=== PATIENT | female | born 1950 | race Two or more races ===

== ENCOUNTER → 2020-03-02 | Outpatient (CLI) | payer MEDICARE ==
[~2020-03-02] MED LIST: CALC1CAP8 PO; CYAN1TAB29 PO; DIPH50CA26 PO; LISI-170 PO; MULT-658 PO; Tylenol arthritis PO; [UNRECOGNIZED DRUG - OTHER] PO; hydrochlorothiazide PO; magnesium PO
[2020-03-02 10:38] LABS: BASOPHILS % (AUTO) 1 % (0-1); EOSINOPHILS % (AUTO) 2 % (1-7); LYMPHOCYTES % (AUTO) 33 % (22-44); MEAN PLATELET VOLUME 8.2 fL (7.4-10.4); MONOCYTES % (AUTO) 11 % (2-9); NEUTROPHILS % (AUTO) 54 % (42-75); PLATELET COUNT 230 x10^3/uL (130-400); RED BLOOD COUNT 3.75 x10^6/uL (3.82-5.3); RED CELL DISTRIBUTION WIDTH 13.4 % (9.6-15.2)
[2020-03-02 10:39] LABS: MICROSCOPIC AUTO
[2020-03-02 10:43] LABS: MD NO
[2020-03-02 10:45] LABS: ALBUMIN 4.1 g/dL (3.4-5.0); ANION GAP 4 mmol/L (5-15); CALCIUM 9.3 mg/dL (8.5-10.1); CHLORIDE 105 mmol/L (98-107)
[2020-03-02 10:49] LABS: ALANINE AMINOTRANSFERASE 29 U/L (12-78); ALKALINE PHOSPHATASE 67 U/L (45-117); BILIRUBIN,TOTAL 0.8 mg/dL (0.2-1.0); CREATININE 0.84 mg/dL (0.55-1.02); TOTAL PROTEIN 7.4 g/dL (6.4-8.2)
== END | disposition home or self-care (01) ==
LOC: STAR 08:43
PROVIDERS: ATTEND Obstetrics & Gynecology Gynecology
DX: Z01.812 Encounter for preprocedural laboratory examination (principal); Z20.828 Contact with and (suspected) exposure to other viral communicable diseases
CPT/HCPCS: 71046; 80053; 81001; 85025; 87077; 87086; 87635; 93005

== ENCOUNTER 2020-03-06 10:09 | Day surgery (SDC) | payer MEDICARE ==
[~2020-03-06] VITALS: Ht 162.6 cm; Wt 72.6 kg
[~2020-03-06 10:09] MED LIST changes: +EPINEPHRINE 1 MG/ML, 1ML ONE; +INDIGO CARMINE 0.8%, 5ML ONE; +LIDOCAINE/PF 1%, 30ML ONE; +METHYLENE BLUE 50 MG/10 ML AMP ONE; +NEOMY/POLYMYXIN B GU IRR. 1 ML ONE
[2020-03-06] MEDS ORDERED: CHLORHEXIDINE 15 ML UDC MM ONE (11:00)
[2020-03-06] MEDS ORDERED: FENTANYL PF 100 MCG/2ML ONE ×3 (11:02→14:15)
[2020-03-06] MEDS ORDERED: MIDAZOLAM 1 MG/ML, 2ML ONE (11:02)
[2020-03-06] MEDS ORDERED: LACTATED RINGERS 1,000 ML IV SCH (12:00)
[2020-03-06] MEDS ORDERED: DEXAMETHASONE 4 MG/ML, 1ML ONE (12:22)
[2020-03-06] MEDS ORDERED: ACETAMINOPHEN 325 MG TABLET PO PRN (13:00)
[2020-03-06] MEDS ORDERED: ALBUTEROL SULFATE 2.5 MG/3 ML NPPB PRN (13:00)
[2020-03-06] MEDS ORDERED: METHOCARBAMOL 1,000 MG in DEXTROSE 5% 100 ML IV PRN (13:00)
[2020-03-06] MEDS ORDERED: LABETALOL 5MG/ML, 20ML IV PRN (13:00)
[2020-03-06] MEDS ORDERED: OXYcodone 5 MG/5 ML ORAL.SOL UDC PO PRN (13:00)
[2020-03-06] MEDS ORDERED: PROMETHAZINE 25 MG/ML, 1ML IVPush PRN (13:00)
[2020-03-06] MEDS ORDERED: MEPERIDINE/PF 25MG/0.5ML IVPush PRN (13:00)
[2020-03-06] MEDS ORDERED: hydrALAzine 20 MG/ML, 1ML IV PRN (13:00)
[2020-03-06] MEDS ORDERED: LORazepam 2 MG/ML, 1ML IVPush PRN (13:00)
[2020-03-06] MEDS ORDERED: HYDROmorphone 1 MG/ML, 1ML INJ IVPush PRN (13:00)
[2020-03-06] MEDS ORDERED: ROCURONIUM 10MG/ML,5ML ONE (13:38)
[2020-03-06] MEDS ORDERED: NEOSTIGMINE 1 MG/ML, 10ML ONE (13:38)
[2020-03-06] MEDS ORDERED: CEFAZOLIN 1,000 MG ONE (13:38)
[2020-03-06] MEDS ORDERED: ONDANSETRON 2MG/ML, 2ML ONE (13:38)
[2020-03-06] MEDS ORDERED: GLYCOPYRROLATE 0.2MG/1ML, 5ML ONE (13:38)
[2020-03-06] MEDS ORDERED: PROPOFOL 10 MG/ML, 20ML ONE (13:38)
[2020-03-06] MEDS ORDERED: HEPARIN 5,000 UNITS/ML, 1ML ONE (13:44)
[2020-03-06] MEDS ORDERED: KETOROLAC 30 MG/1 ML IVPush ONE (13:47)
[2020-03-06] MEDS ORDERED: KETOROLAC 30 MG/1 ML ONE (13:49)
[2020-03-06] MEDS ORDERED: OXYcodone 5 MG/5 ML ORAL.SOL UDC ONE (14:14)
[2020-03-06] MEDS ORDERED: ACETAMINOPHEN 650 MG/20.3 ML UDC ONE (14:14)
[2020-03-06] MEDS: FENTANYL PF 100 MCG/2ML IV PRN ×2 (14:21→14:35)
[2020-03-06] MEDS ORDERED: PROMETHAZINE 25 MG/ML, 1ML ONE (14:22)
== END 2020-03-06 17:35 | disposition home or self-care (01) ==
LOC: OUT 10:09
PROVIDERS: ATTEND Obstetrics & Gynecology Gynecology
DX: R10.2 Pelvic and perineal pain (principal); D27.1 Benign neoplasm of left ovary; D27.0 Benign neoplasm of right ovary; Z79.899 Other long term (current) drug therapy; Z87.891 Personal history of nicotine dependence
CPT/HCPCS: 58661; 88112; 88305; 88307; 88311; J0171; J0690; J1100; J1644; J1885; J2250; J2405; J2550; J2704; J2710; J3010; J7120; Q9968